=== PATIENT | male | born 1945 | race African-American/Black ===

== ENCOUNTER 2017-11-11 10:29 | Inpatient (IN) | payer MEDICARE ==
[2017-11-11] MEDS: IV NORMAL SALINE 1000ML BAG 1,000 ML IV ×4 (11:08→14:34)
[2017-11-11] MEDS ORDERED: MIDAZOLAM HCL/PF 5 MG/5 ML VIAL. (11:18)
[2017-11-11 11:19] LABS: BASO % 0 % (0-3); EOS # 0.2 x10^3/uL (0.0-0.7); EOS % 1 % (0-3); HEMATOCRIT 31.5 % (39.0-53.0); LYMPH # 0.5 x10^3/uL (1.0-4.8); LYMPH % 3 % (24-48); MEAN CORPUSCULAR HEMOGLOBIN 31 pg (25-35); MEAN CORPUSCULAR HGB CONC 32 g/dL (31-37); MEAN CORPUSCULAR VOLUME 98 fL (79-100); MONO # 0.6 x10^3/uL (0.0-1.1); MONO % 4 % (0-9); NEUT # 12.3 x10^3uL (1.8-7.7); NEUT % 91 % (31-73); PLATELET COUNT 154 x10^3/uL (140-400); RED BLOOD COUNT 3.22 x10^6/uL (4.30-5.70); WHITE BLOOD COUNT 13.6 x10^3/uL (4.0-11.0)
[2017-11-11 11:23] LABS: ANION GAP 9 (6-14); BLOOD UREA NITROGEN 36 mg/dL (8-26); BUN/CREATININE RATIO 8 (6-20); CALCIUM 7.9 mg/dL (8.5-10.1); CARBON DIOXIDE 24 mmol/L (21-32); CHLORIDE 108 mmol/L (98-107); CREATININE 4.5 mg/dL (0.7-1.3); GFR 15.7; GLUCOSE 222 mg/dL (70-99); POTASSIUM 5.2 mmol/L (3.5-5.1); SODIUM 141 mmol/L (136-145)
[2017-11-11 11:29] LABS: ALBUMIN 2.7 g/dL (3.4-5.0); ALBUMIN/GLOBULIN RATIO 0.9 (1.0-1.7); ALK PHOS 89 U/L (46-116); ALT (SGPT) 171 U/L (16-63); AST (SGOT) 179 U/L (15-37); MAGNESIUM 1.9 mg/dL (1.8-2.4); TOTAL BILIRUBIN 0.5 mg/dL (0.2-1.0); TOTAL PROTEIN 5.8 g/dL (6.4-8.2)
[2017-11-11] MEDS: MIDAZOLAM HCL/PF 2 MG/2 ML VIAL. IV (11:30)
[2017-11-11 11:32] LABS: ADD MAN DIFF? YES
[2017-11-11 11:34] LABS: TROPONINI 0.056 ng/mL (0.000-0.055)
[2017-11-11 11:37] LABS: INR 1.3 (0.8-1.1); PROTHROMBIN TIME PATIENT 15.8 SEC (11.7-14.0)
[2017-11-11] MEDS ORDERED: PIP/TAZO PER PHARMACY MC (11:45)
[2017-11-11 11:46] LABS: LACTIC ACID 4.1 mmol/L (0.4-2.0)
[2017-11-11] MEDS ORDERED: fentaNYL PF VIAL 100 MCG/2 ML VIAL IV (12:00)
[2017-11-11] MEDS: MIDAZOLAM 100MG/100ML PREMIX 100 ML IV ×2 (12:17→23:17)
[2017-11-11] MEDS: PIPERACILLIN/TAZOBACTAM 2.25 GM in IV NORMAL SALINE 50ML 50 ML IV ×3 (12:19→23:59)
[2017-11-11] MEDS: VANCOMYCIN 2 GM in IV DEXTROSE 5 %-0.2 % NACL 500 ML IV (12:19)
[2017-11-11] MEDS: VECURONIUM BOLUS 10 MG VIAL. IV (12:19)
[2017-11-11 12:24] LABS: % BANDS 12 % (0-9); % EOS 1 % (0-5); % LYMPHS 3 % (24-48); % MONOS 7 % (0-10); % SEGS 77 % (35-66); ANISOCYTOSIS SLIGHT; PLT ESTIMATE ADEQUATE (ADEQUATE)
[2017-11-11 12:25] LABS: OVALOCYTES PRESENT; POIKILOCYTOSIS PRESENT
[2017-11-11] MEDS: ATROPINE 0.5 MG/5 ML DISP.SYRIN. IV (12:38)
[2017-11-11 12:40] LABS: BASE EXCESS ABG -5 mmol/L (-3-3); BODY TEMP ABG 92.8 DEG; CORRECTED PCO2 ABG 36 mmHg; CORRECTED PH ABG 7.37; CORRECTED PO2 ABG 320 mmHg; HCO3 ABG 21 mmol/L (21-28); PCO2 ABG 42 mmHg (35-46); PH ABG 7.32 (7.35-7.45); PO2 ABG 336 mmHg (65-108); SAT O2 ABG 99 % (92-99)
[2017-11-11 12:43] LABS: FIO2 ABG 100
[2017-11-11] MEDS ORDERED: INSULIN REGULAR VIAL 150 UNIT in 0.9 % SODIUM CHLORIDE 150ML 150 ML IV (13:00)
[2017-11-11 13:08] LABS: POC GLUCOSE 213 mg/dL (70-99)
[2017-11-11 14:12] LABS: POC GLUCOSE 182 mg/dL (70-99)
[2017-11-11 14:16] LABS: TROPONINI 0.136 ng/mL (0.000-0.055)
[2017-11-11] MEDS: VANCOMYCIN PER PHARMACY MC (14:43)
[2017-11-11 15:38] LABS: POC GLUCOSE 146 mg/dL (70-99)
[2017-11-11 15:40] LABS: LACTIC ACID 1.6 mmol/L (0.4-2.0)
[2017-11-11 16:11] LABS: ANION GAP 13 (6-14); BLOOD UREA NITROGEN 39 mg/dL (8-26); CALCIUM 8.2 mg/dL (8.5-10.1); CARBON DIOXIDE 21 mmol/L (21-32); CHLORIDE 107 mmol/L (98-107); CREATININE 4.4 mg/dL (0.7-1.3); GFR 16.1; GLUCOSE 198 mg/dL (70-99); SODIUM 141 mmol/L (136-145)
[2017-11-11 16:11] LABS: MAGNESIUM 1.9 mg/dL (1.8-2.4)
[2017-11-11 16:39] LABS: POC GLUCOSE 172 mg/dL (70-99)
[2017-11-11 16:55] LABS: TROPONINI 0.173 ng/mL (0.000-0.055)
[2017-11-11] MEDS: OSELTAMIVIR 30 MG/5 ML ORAL.SUSP. NG (17:20)
[2017-11-11 17:41] LABS: POC GLUCOSE 157 mg/dL (70-99)
[2017-11-11 18:25] LABS: POC GLUCOSE 131 mg/dL (70-99)
[2017-11-11 20:22] LABS: ANION GAP 10 (6-14); BLOOD UREA NITROGEN 42 mg/dL (8-26); CALCIUM 7.7 mg/dL (8.5-10.1); CARBON DIOXIDE 23 mmol/L (21-32); CHLORIDE 108 mmol/L (98-107); CREATININE 4.6 mg/dL (0.7-1.3); GFR 15.3; GLUCOSE 132 mg/dL (70-99); POTASSIUM 3.6 mmol/L (3.5-5.1); SODIUM 141 mmol/L (136-145)
[2017-11-11] MEDS ORDERED: EPINEPHrine SYRINGE 1 MG/10 ML SYRINGE (21:00)
[2017-11-11] MEDS ORDERED: CALCIUM CHLORIDE 1,000 MG/10 ML DISP.SYRIN IV (21:00)
[2017-11-11] MEDS: TIMOLOL 0.5% OPHTH SOLUTION 5ML BOTTLE. OU (21:06)
[2017-11-11] MEDS: ASPIRIN CHEWABLE 81 MG TABLET. PO (21:06)
[2017-11-11] MEDS: LATANOPROST 0.005% OPHTH SOLUTION 2.5ML BOTTLE. OU (21:06)
[2017-11-11] MEDS: DORZOLAMIDE 2% OPHTH SOLUTION 10ML BOTTLE. OU (21:06)
[2017-11-11 21:11] LABS: HEMATOCRIT 30.8 % (39.0-53.0); MEAN CORPUSCULAR HEMOGLOBIN 31 pg (25-35); MEAN CORPUSCULAR HGB CONC 33 g/dL (31-37); MEAN CORPUSCULAR VOLUME 94 fL (79-100); PLATELET COUNT 127 x10^3/uL (140-400); RED BLOOD COUNT 3.27 x10^6/uL (4.30-5.70); RED CELL DISTRIBUTION WIDTH 17.5 % (11.5-14.5); WHITE BLOOD COUNT 6.7 x10^3/uL (4.0-11.0)
[2017-11-11 21:15] LABS: BASE EXCESS ABG -5 mmol/L (-3-3); BODY TEMP ABG 87.5 DEG; CORRECTED PCO2 ABG 25 mmHg; CORRECTED PH ABG 7.47; CORRECTED PO2 ABG 52 mmHg; FIO2 ABG 50; HCO3 ABG 19 mmol/L (21-28); PCO2 ABG 33 mmHg (35-46); PH ABG 7.38 (7.35-7.45); PO2 ABG 78 mmHg (65-108); SAT O2 ABG 95 % (92-99)
[2017-11-11 21:18] LABS: INR 1.5 (0.8-1.1); PROTHROMBIN TIME PATIENT 17.1 SEC (11.7-14.0)
[2017-11-11 21:28] LABS: LACTIC ACID 1.4 mmol/L (0.4-2.0)
[2017-11-11 22:59] LABS: TROPONINI 0.189 ng/mL (0.000-0.055)
[2017-11-11 23:10] LABS: MRSA BY PCR Negative (Negative)
[2017-11-11 23:50] LABS: POC GLUCOSE 118 mg/dL (70-99)
[2017-11-12 00:29] LABS: ANION GAP 9 (6-14); BLOOD UREA NITROGEN 42 mg/dL (8-26); CALCIUM 7.9 mg/dL (8.5-10.1); CARBON DIOXIDE 25 mmol/L (21-32); CHLORIDE 108 mmol/L (98-107); CREATININE 4.5 mg/dL (0.7-1.3); GFR 15.7; GLUCOSE 138 mg/dL (70-99); POTASSIUM 3.9 mmol/L (3.5-5.1); SODIUM 142 mmol/L (136-145)
[2017-11-12 00:33] LABS: PHOSPHORUS 2.7 mg/dL (2.6-4.7)
[2017-11-12 01:10] LABS: POC GLUCOSE 121 mg/dL (70-99)
[2017-11-12 01:10] LABS: POC GLUCOSE 129 mg/dL (70-99)
[2017-11-12 03:09] LABS: POC GLUCOSE 130 mg/dL (70-99)
[2017-11-12 03:09] LABS: POC GLUCOSE 130 mg/dL (70-99)
[2017-11-12 04:19] LABS: TROPONINI 0.157 ng/mL (0.000-0.055)
[2017-11-12 04:42] LABS: ADD MAN DIFF? NO
[2017-11-12 04:44] LABS: POC GLUCOSE 132 mg/dL (70-99)
[2017-11-12 04:45] LABS: BASO % 0 % (0-3); EOS % 0 % (0-3); HEMATOCRIT 29.7 % (39.0-53.0); HEMOGLOBIN 9.9 g/dL (13.0-17.5); LYMPH # 0.1 x10^3/uL (1.0-4.8); LYMPH % 1 % (24-48); MEAN CORPUSCULAR HEMOGLOBIN 32 pg (25-35); MEAN CORPUSCULAR HGB CONC 33 g/dL (31-37); MEAN CORPUSCULAR VOLUME 94 fL (79-100); MONO # 0.4 x10^3/uL (0.0-1.1); MONO % 5 % (0-9); NEUT % 94 % (31-73); PLATELET COUNT 133 x10^3/uL (140-400); RED BLOOD COUNT 3.15 x10^6/uL (4.30-5.70); RED CELL DISTRIBUTION WIDTH 17.9 % (11.5-14.5); WHITE BLOOD COUNT 7.5 x10^3/uL (4.0-11.0)
[2017-11-12 04:57] LABS: INR 1.4 (0.8-1.1); PROTHROMBIN TIME PATIENT 16.5 SEC (11.7-14.0)
[2017-11-12 05:09] LABS: LACTIC ACID 1.1 mmol/L (0.4-2.0)
[2017-11-12 05:13] LABS: BASE EXCESS ABG -6 mmol/L (-3-3); BODY TEMP ABG 92.4 DEG; CORRECTED PCO2 ABG 32 mmHg; CORRECTED PH ABG 7.38; CORRECTED PO2 ABG 72 mmHg; HCO3 ABG 19 mmol/L (21-28); PCO2 ABG 37 mmHg (35-46); PH ABG 7.33 (7.35-7.45); PO2 ABG 89 mmHg (65-108); SAT O2 ABG 96 % (92-99)
[2017-11-12 05:15] LABS: MAGNESIUM 1.8 mg/dL (1.8-2.4)
[2017-11-12 05:18] LABS: THYROID STIM HORMONE (TSH) 0.781 uIU/mL (0.358-3.74)
[2017-11-12 05:19] LABS: ALBUMIN 2.6 g/dL (3.4-5.0); ALBUMIN/GLOBULIN RATIO 0.8 (1.0-1.7); ALK PHOS 79 U/L (46-116); ALT (SGPT) 147 U/L (16-63); ANION GAP 9 (6-14); AST (SGOT) 105 U/L (15-37); BLOOD UREA NITROGEN 42 mg/dL (8-26); BUN/CREATININE RATIO 10 (6-20); CALCIUM 7.6 mg/dL (8.5-10.1); CARBON DIOXIDE 24 mmol/L (21-32); CHLORIDE 109 mmol/L (98-107); CHOLESTEROL 60 mg/dL (0-200); CREATININE 4.3 mg/dL (0.7-1.3); GFR 16.6; GLUCOSE 143 mg/dL (70-99); NON-HDL CHOLESTEROL 21 mg/dL (0-129); POTASSIUM 4.2 mmol/L (3.5-5.1); SODIUM 142 mmol/L (136-145); TOTAL BILIRUBIN 1.2 mg/dL (0.2-1.0)
[2017-11-12 05:19] LABS: PHOSPHORUS 3.5 mg/dL (2.6-4.7)
[2017-11-12 05:20] LABS: POC GLUCOSE 121 mg/dL (70-99)
[2017-11-12 05:31] LABS: FIO2 ABG 50
[2017-11-12] MEDS: PIPERACILLIN/TAZOBACTAM 2.25 GM in IV NORMAL SALINE 50ML 50 ML IV ×3 (05:34→17:38)
[2017-11-12 05:38] LABS: CHOLESTEROL/HDL RATIO 1.5
[2017-11-12 05:40] LABS: HDLC 39 mg/dL (40-60)
[2017-11-12 05:41] LABS: TRIGLYCERIDES < 15 mg/dL (0-150)
[2017-11-12 06:25] LABS: POC GLUCOSE 109 mg/dL (70-99)
[2017-11-12 06:26] LABS: POC GLUCOSE 102 mg/dL (70-99)
[2017-11-12 06:26] LABS: POC GLUCOSE 125 mg/dL (70-99)
[2017-11-12 09:11] LABS: ANION GAP 10 (6-14); BLOOD UREA NITROGEN 42 mg/dL (8-26); CALCIUM 7.5 mg/dL (8.5-10.1); CARBON DIOXIDE 24 mmol/L (21-32); CHLORIDE 108 mmol/L (98-107); CREATININE 4.5 mg/dL (0.7-1.3); GFR 15.7; GLUCOSE 119 mg/dL (70-99); POTASSIUM 4.5 mmol/L (3.5-5.1); SODIUM 142 mmol/L (136-145)
[2017-11-12 09:12] LABS: MAGNESIUM 1.8 mg/dL (1.8-2.4)
[2017-11-12 09:15] LABS: PHOSPHORUS 4.1 mg/dL (2.6-4.7)
[2017-11-12 09:21] LABS: TROPONINI 0.132 ng/mL (0.000-0.055)
[2017-11-12] MEDS: TIMOLOL 0.5% OPHTH SOLUTION 5ML BOTTLE. OU ×2 (10:58→20:55)
[2017-11-12] MEDS: DORZOLAMIDE 2% OPHTH SOLUTION 10ML BOTTLE. OU ×2 (10:58→20:55)
[2017-11-12] MEDS: MIDAZOLAM 100MG/100ML PREMIX 100 ML IV (10:59)
[2017-11-12] MEDS: AMINO AC 3%/ELECTROLYTE/GLYCER 1,000 ML IV ×2 (12:52→19:30)
[2017-11-12 13:15] LABS: HEMOGLOBIN 8.9 g/dL (13.0-17.5); MEAN CORPUSCULAR HEMOGLOBIN 31 pg (25-35); MEAN CORPUSCULAR HGB CONC 33 g/dL (31-37); MEAN CORPUSCULAR VOLUME 95 fL (79-100); PLATELET COUNT 122 x10^3/uL (140-400); RED BLOOD COUNT 2.84 x10^6/uL (4.30-5.70); WHITE BLOOD COUNT 5.9 x10^3/uL (4.0-11.0)
[2017-11-12 13:18] LABS: ANION GAP 12 (6-14); BLOOD UREA NITROGEN 43 mg/dL (8-26); CARBON DIOXIDE 20 mmol/L (21-32); CHLORIDE 108 mmol/L (98-107); CREATININE 4.5 mg/dL (0.7-1.3); GFR 15.7; GLUCOSE 117 mg/dL (70-99); POTASSIUM 4.6 mmol/L (3.5-5.1); SODIUM 140 mmol/L (136-145)
[2017-11-12 13:19] LABS: MAGNESIUM 1.8 mg/dL (1.8-2.4)
[2017-11-12 13:24] LABS: ALBUMIN 2.5 g/dL (3.4-5.0); ALK PHOS 75 U/L (46-116); ALT (SGPT) 119 U/L (16-63); AST (SGOT) 79 U/L (15-37); BASE EXCESS ABG -7 mmol/L (-3-3); DIRECT BILIRUBIN 0.4 mg/dL (0.0-0.2); HCO3 ABG 18 mmol/L (21-28); INR 1.4 (0.8-1.1); LIPASE 81 U/L (73-393); PCO2 ABG 34 mmHg (35-46); PH ABG 7.34 (7.35-7.45); PO2 ABG 109 mmHg (65-108); PROTHROMBIN TIME PATIENT 16.5 SEC (11.7-14.0); SAT O2 ABG 97 % (92-99); TOTAL BILIRUBIN 1.1 mg/dL (0.2-1.0); TOTAL PROTEIN 5.8 g/dL (6.4-8.2)
[2017-11-12 13:26] LABS: CORRECTED PCO2 ABG 31 mmHg; CORRECTED PH ABG 7.37; CORRECTED PO2 ABG 97 mmHg
[2017-11-12 13:29] LABS: PHOSPHORUS 4.3 mg/dL (2.6-4.7)
[2017-11-12 13:33] LABS: LACTIC ACID 1.3 mmol/L (0.4-2.0)
[2017-11-12 13:40] LABS: FIO2 ABG 50
[2017-11-12 15:13] LABS: TROPONINI 0.116 ng/mL (0.000-0.055)
[2017-11-12] MEDS: OSELTAMIVIR 30 MG/5 ML ORAL.SUSP. NG (17:38)
[2017-11-12] MEDS ORDERED: MEPERIDINE PF 25 MG/ML VIAL. IV (20:15)
[2017-11-12] MEDS ORDERED: MINERAL OIL/PETROLATUM,WHITE OPHTH OINT 3.5GM TUBE. OU (20:15)
[2017-11-12] MEDS ORDERED: fentaNYL PF VIAL 100 MCG/2 ML VIAL IV (20:15)
[2017-11-12] MEDS ORDERED: 0.9 % SODIUM CHLORIDE 10 ML DISP.SYRIN. IV (20:15)
[2017-11-12] MEDS: ASPIRIN CHEWABLE 81 MG TABLET. PO (20:54)
[2017-11-12] MEDS: LATANOPROST 0.005% OPHTH SOLUTION 2.5ML BOTTLE. OU (20:55)
[2017-11-12] MEDS: CHLORHEXIDINE 0.12% 15 ML MOUTHWASH. MM (20:56)
[2017-11-12 21:18] LABS: HEMATOCRIT 27.2 % (39.0-53.0); HEMOGLOBIN 9.1 g/dL (13.0-17.5); MEAN CORPUSCULAR HEMOGLOBIN 32 pg (25-35); MEAN CORPUSCULAR HGB CONC 34 g/dL (31-37); MEAN CORPUSCULAR VOLUME 95 fL (79-100); PLATELET COUNT 119 x10^3/uL (140-400); RED BLOOD COUNT 2.88 x10^6/uL (4.30-5.70); RED CELL DISTRIBUTION WIDTH 18.2 % (11.5-14.5); WHITE BLOOD COUNT 7.6 x10^3/uL (4.0-11.0)
[2017-11-12 21:28] LABS: INR 1.4 (0.8-1.1); PROTHROMBIN TIME PATIENT 16.6 SEC (11.7-14.0)
[2017-11-12 21:30] LABS: BASE EXCESS ABG -7 mmol/L (-3-3); HCO3 ABG 19 mmol/L (21-28); PCO2 ABG 42 mmHg (35-46); PH ABG 7.27 (7.35-7.45); PO2 ABG 93 mmHg (65-108); SAT O2 ABG 96 % (92-99)
[2017-11-12 21:33] LABS: FIO2 ABG 50
[2017-11-12 21:38] LABS: MAGNESIUM 1.9 mg/dL (1.8-2.4)
[2017-11-12 21:38] LABS: ANION GAP 10 (6-14); BLOOD UREA NITROGEN 49 mg/dL (8-26); CALCIUM 7.6 mg/dL (8.5-10.1); CARBON DIOXIDE 23 mmol/L (21-32); CHLORIDE 107 mmol/L (98-107); CREATININE 4.7 mg/dL (0.7-1.3); GFR 14.9; GLUCOSE 91 mg/dL (70-99); POTASSIUM 5.1 mmol/L (3.5-5.1); SODIUM 140 mmol/L (136-145)
[2017-11-12 21:41] LABS: PHOSPHORUS 4.5 mg/dL (2.6-4.7)
[2017-11-12 21:53] LABS: LACTIC ACID 1.4 mmol/L (0.4-2.0)
[2017-11-13] MEDS: PIPERACILLIN/TAZOBACTAM 2.25 GM in IV NORMAL SALINE 50ML 50 ML IV ×4 (00:43→16:52)
[2017-11-13] MEDS: ACETAMINOPHEN 650 MG/20.3 ML SOLUTION. NG ×4 (00:43→16:53)
[2017-11-13 02:17] LABS: HEMOGLOBIN A1C 4.9 % (4.8-5.6)
[2017-11-13 04:41] LABS: BASE EXCESS ABG -5 mmol/L (-3-3); BODY TEMP ABG 96.5 DEG; CORRECTED PCO2 ABG 31 mmHg; CORRECTED PO2 ABG 90 mmHg; HCO3 ABG 19 mmol/L (21-28); SAT O2 ABG 97 % (92-99)
[2017-11-13 04:42] LABS: PCO2 ABG 33 mmHg (35-46); PH ABG 7.38 (7.35-7.45); PO2 ABG 97 mmHg (65-108)
[2017-11-13 04:49] LABS: FIO2 ABG 50
[2017-11-13] MEDS: MIDAZOLAM 100MG/100ML PREMIX 100 ML IV (05:09)
[2017-11-13 05:36] LABS: HEMATOCRIT 27.6 % (39.0-53.0); MEAN CORPUSCULAR HEMOGLOBIN 31 pg (25-35); MEAN CORPUSCULAR HGB CONC 33 g/dL (31-37); MEAN CORPUSCULAR VOLUME 95 fL (79-100); PLATELET COUNT 118 x10^3/uL (140-400); RED BLOOD COUNT 2.91 x10^6/uL (4.30-5.70); RED CELL DISTRIBUTION WIDTH 18.1 % (11.5-14.5); WHITE BLOOD COUNT 7.5 x10^3/uL (4.0-11.0)
[2017-11-13 05:40] LABS: INR 1.5 (0.8-1.1); PROTHROMBIN TIME PATIENT 16.8 SEC (11.7-14.0)
[2017-11-13 05:41] LABS: ANION GAP 11 (6-14); BLOOD UREA NITROGEN 52 mg/dL (8-26); CALCIUM 8.2 mg/dL (8.5-10.1); CARBON DIOXIDE 22 mmol/L (21-32); CHLORIDE 106 mmol/L (98-107); CREATININE 4.8 mg/dL (0.7-1.3); GFR 14.6; GLUCOSE 85 mg/dL (70-99); POTASSIUM 4.8 mmol/L (3.5-5.1); SODIUM 139 mmol/L (136-145)
[2017-11-13 05:46] LABS: MAGNESIUM 1.9 mg/dL (1.8-2.4)
[2017-11-13 05:55] LABS: LACTIC ACID 1.3 mmol/L (0.4-2.0)
[2017-11-13 07:10] LABS: TROPONINI 0.083 ng/mL (0.000-0.055)
[2017-11-13] MEDS: AMINO AC 3%/ELECTROLYTE/GLYCER 1,000 ML IV ×2 (09:12→21:01)
[2017-11-13] MEDS: TIMOLOL 0.5% OPHTH SOLUTION 5ML BOTTLE. OU ×2 (09:13→21:02)
[2017-11-13] MEDS: DORZOLAMIDE 2% OPHTH SOLUTION 10ML BOTTLE. OU ×2 (09:14→21:01)
[2017-11-13] MEDS: CHLORHEXIDINE 0.12% 15 ML MOUTHWASH. MM ×2 (09:15→21:00)
[2017-11-13] MEDS ORDERED: LIDOCAINE WITH 8.4% SOD BICARB 3 ML DISP.SYRIN. (14:03)
[2017-11-13] MEDS: LIDOCAINE WITH 8.4% SOD BICARB 3 ML DISP.SYRIN. INJ (14:56)
[2017-11-13] MEDS ORDERED: LIDOCAINE WITH 8.4% SOD BICARB 3 ML DISP.SYRIN. INJ (15:00)
[2017-11-13] MEDS: OSELTAMIVIR 30 MG/5 ML ORAL.SUSP. NG (16:52)
[2017-11-13] MEDS ORDERED: ACETAMINOPHEN 650 MG SUPP.RECT. PR (20:15)
[2017-11-13] MEDS ORDERED: ACETAMINOPHEN 650 MG/20.3 ML SOLUTION. NG (20:15)
[2017-11-13] MEDS: ASPIRIN CHEWABLE 81 MG TABLET. PO (21:00)
[2017-11-13] MEDS: LATANOPROST 0.005% OPHTH SOLUTION 2.5ML BOTTLE. OU (21:02)
[2017-11-14] MEDS: PIPERACILLIN/TAZOBACTAM 2.25 GM in IV NORMAL SALINE 50ML 50 ML IV ×2 (00:24→05:36)
[2017-11-14 06:24] LABS: ANION GAP 10 (6-14); BLOOD UREA NITROGEN 63 mg/dL (8-26); CALCIUM 7.8 mg/dL (8.5-10.1); CARBON DIOXIDE 24 mmol/L (21-32); CHLORIDE 102 mmol/L (98-107); CREATININE 5.6 mg/dL (0.7-1.3); GFR 12.2; GLUCOSE 100 mg/dL (70-99); POTASSIUM 4.6 mmol/L (3.5-5.1); SODIUM 136 mmol/L (136-145)
[2017-11-14 08:31] LABS: MAGNESIUM 2.1 mg/dL (1.8-2.4)
[2017-11-14] MEDS: CHLORHEXIDINE 0.12% 15 ML MOUTHWASH. MM ×2 (08:33→21:31)
[2017-11-14] MEDS: TIMOLOL 0.5% OPHTH SOLUTION 5ML BOTTLE. OU ×2 (08:33→21:31)
[2017-11-14] MEDS: DORZOLAMIDE 2% OPHTH SOLUTION 10ML BOTTLE. OU ×2 (08:34→21:31)
[2017-11-14 09:00] LABS: BASE EXCESS ABG -5 mmol/L (-3-3); HCO3 ABG 20 mmol/L (21-28); PCO2 ABG 39 mmHg (35-46); PH ABG 7.34 (7.35-7.45); PO2 ABG 75 mmHg (65-108); SAT O2 ABG 94 % (92-99)
[2017-11-14 09:14] LABS: FIO2 ABG 40% vent
[2017-11-14] MEDS: AMINO AC 3%/ELECTROLYTE/GLYCER 1,000 ML IV (12:12)
[2017-11-14] MEDS: IV NORMAL SALINE 1000ML BAG 1,000 ML IV (12:12)
[2017-11-14] MEDS ORDERED: ELECTROLYTE (ICU) PROTOCOL. MC (20:15)
[2017-11-14] MEDS: ASPIRIN CHEWABLE 81 MG TABLET. PO (21:31)
[2017-11-14] MEDS: LATANOPROST 0.005% OPHTH SOLUTION 2.5ML BOTTLE. OU (21:31)
[2017-11-15 00:23] LABS: POC GLUCOSE 125 mg/dL (70-99)
[2017-11-15] MEDS: IV NORMAL SALINE 1000ML BAG 1,000 ML IV ×2 (02:18→15:31)
[2017-11-15 06:09] LABS: POC GLUCOSE 131 mg/dL (70-99)
[2017-11-15 06:31] LABS: ANION GAP 13 (6-14); BLOOD UREA NITROGEN 66 mg/dL (8-26); CALCIUM 8.2 mg/dL (8.5-10.1); CARBON DIOXIDE 21 mmol/L (21-32); CHLORIDE 104 mmol/L (98-107); CREATININE 5.3 mg/dL (0.7-1.3); GLUCOSE 134 mg/dL (70-99); POTASSIUM 4.5 mmol/L (3.5-5.1); SODIUM 138 mmol/L (136-145)
[2017-11-15 07:36] LABS: BASE EXCESS ABG -8 mmol/L (-3-3); HCO3 ABG 17 mmol/L (21-28); PCO2 ABG 34 mmHg (35-46); PH ABG 7.33 (7.35-7.45); PO2 ABG 78 mmHg (65-108); SAT O2 ABG 94 % (92-99)
[2017-11-15 08:14] LABS: FIO2 ABG 40
[2017-11-15] MEDS: CHLORHEXIDINE 0.12% 15 ML MOUTHWASH. MM (09:00)
[2017-11-15] MEDS: TIMOLOL 0.5% OPHTH SOLUTION 5ML BOTTLE. OU (09:22)
[2017-11-15] MEDS: DORZOLAMIDE 2% OPHTH SOLUTION 10ML BOTTLE. OU (09:22)
[2017-11-15] MEDS: CARVEDILOL 12.5 MG TABLET. PO (10:45)
[2017-11-15] MEDS: ALLOPURINOL 100 MG TABLET. PO (10:45)
[2017-11-15] MEDS ORDERED: DUTASTERIDE 0.5 MG CAPSULE PO (21:00)
[2017-11-15] MEDS ORDERED: FINASTERIDE 5 MG TABLET. PO (21:00)
[2017-11-15] MEDS ORDERED: ATORVASTATIN CALCIUM 20 MG TABLET PO (21:00)
[2017-11-15] MEDS ORDERED: MEXILETINE HCL 250 MG PO (21:00)
== END 2017-11-15 20:30 | disposition short-term general hospital (02) | DRG 207 ==
LOC: ER 10:29 → 1 WEST ICU 10:59
PROC: 5A1955Z Respiratory Ventilation, Greater than 96 Consecutive Hours (ICD-10-PCS; principal; 2017-11-11)
PROC: 0BH17EZ Insertion of Endotracheal Airway into Trachea, Via Natural or Artificial Opening (ICD-10-PCS; 2017-11-11)
PROC: 5A12012 Performance of Cardiac Output, Single, Manual (ICD-10-PCS; 2017-11-11)
PROC: 05HM33Z Insertion of Infusion Device into Right Internal Jugular Vein, Percutaneous Approach (ICD-10-PCS; 2017-11-13)
PROC: B543ZZA Ultrasonography of Right Jugular Veins, Guidance (ICD-10-PCS; 2017-11-13)
DX: J96.01 Acute respiratory failure with hypoxia (principal); I46.9 Cardiac arrest, cause unspecified; I13.2 Hypertensive heart and chronic kidney disease with heart failure and with stage 5 chronic kidney disease, or end stage renal disease; N17.9 Acute kidney failure, unspecified; G93.1 Anoxic brain damage, not elsewhere classified; N18.6 End stage renal disease; I47.2 Ventricular tachycardia; E87.2 Acidosis; I42.9 Cardiomyopathy, unspecified; Z95.0 Presence of cardiac pacemaker; E78.5 Hyperlipidemia, unspecified; I50.9 Heart failure, unspecified; G47.30 Sleep apnea, unspecified; G25.3 Myoclonus; D72.829 Elevated white blood cell count, unspecified; M10.9 Gout, unspecified; N40.0 Benign prostatic hyperplasia without lower urinary tract symptoms; Z82.3 Family history of stroke; Z82.49 Family history of ischemic heart disease and other diseases of the circulatory system; Z87.891 Personal history of nicotine dependence
CPT/HCPCS: 31500; 36415; 36556; 36600; 51702; 70450; 71045; 76937; 80048; 80053; 80061; 80076; 82805; 82962; 83036; 83605; 83690; 83735; 84100; 84443; 84484; 85007; 85025; 85027; 85610; 87040; 87641; 93005; 93306; 93970; 94002; 94003; 94640; 95816; 96374; 99291-25; C1892; J0171; J0461; J1644; J2020; J2250; J2543; J3010; J3370; J3490; J7030; J7050